=== PATIENT | male | born 1985 | race Caucasian/White ===

== ENCOUNTER 2017-12-26 16:44 | Emergency (ER) | payer SELFPAY ==
[~2017-12-26] VITALS: Ht 172.7 cm; Wt 87.0 kg
[2017-12-26 17:33] VITALS: BP 177/85
== END 2017-12-26 19:01 | disposition home or self-care (01) ==
LOC: ER 16:44
DX: B36.0 Pityriasis versicolor (principal); F17.200 Nicotine dependence, unspecified, uncomplicated
CPT/HCPCS: 99283; J7030